=== PATIENT | female | born 1965 | race Caucasian/White ===

== ENCOUNTER → 2016-11-22 | Outpatient (CLI) | payer MEDICARE, MEDICAID | LOC: WI 09:44 | PROVIDERS: ATTEND Family Medicine | DX: Z12.31 Encounter for screening mammogram for malignant neoplasm of breast (principal) | CPT/HCPCS: 77067; G0202 ==

== ENCOUNTER 2017-08-18 07:58 | Emergency (ER) | payer MEDICARE, MEDICAID ==
[2017-08-18 08:04] VITALS: BP 107/87
--- NOTE | 2017-08-18 08:48 | ER Document Report ---
ED General - General Chief Complaint: Cough Stated Complaint: COUGH Time Seen by Provider: 08/18/17 08:28 TRAVEL OUTSIDE OF THE [place] IN LAST 30 DAYS: No - Related Data Allergies/Adverse Reactions: amoxicillin [From Augmentin] Allergy (Verified 04/25/16 16:48) clarithromycin [From Biaxin] Allergy (Verified 04/25/16 16:48) clavulanic acid [From Augmentin] Allergy (Verified 04/25/16 16:48) meloxicam [From Mobic] Allergy (Verified 04/25/16 16:48) Past Medical History - Social History Smoking Status: Current Every Day Smoker Chew tobacco use (# tins/day): No Frequency of alcohol use: None Drug Abuse: None Family History: Reviewed & Not Pertinent Patient has suicidal ideation: No Patient has homicidal ideation: No Pulmonary Medical History: Reports: Hx Bronchitis, Hx COPD Endocrine Medical History: Reports: Hx Diabetes Mellitus Type 2 Renal/ Medical History: Denies: Hx Peritoneal Dialysis GI Medical History: Reports: Hx Gastroesophageal Reflux Disease Past Surgical History: Reports: Hx Breast Surgery - breast reduction, Hx Cholecystectomy, Hx Genitourinary Surgery - bladder mesh insert and removal, Hx Gynecologic Surgery - hysterectomy, Hx Hysterectomy, Hx Nose Surgery - deviated septum, polyp removals, Hx Orthopedic Surgery - right shoulder spurs and cyst removal, torn rotator cuff, left ulnar nerve, Hx Thyroid Surgery - thyroidectomy - Immunizations Immunizations up to date: No Hx Diphtheria, Pertussis, Tetanus Vaccination: No Physical Exam - Vital signs Vitals: Temp Pulse Resp BP Pulse Ox 98.3 F 70 16 107/87 H 97 08/18/17 08:03 08/18/17 08:03 08/18/17 08:03 08/18/17 08:03 08/18/17 08:03 Course - Vital Signs Vital signs: Temp Pulse Resp BP Pulse Ox 98.3 F 70 16 107/87 H 97 08/18/17 08:03 08/18/17 08:03 08/18/17 08:03 08/18/17 08:03 08/18/17 08:03 Discharge - Discharge Clinical Impression: Cough Condition: Good Disposition: HOME, SELF-CARE Instructions: Bronchitis ([facility]), Cough Suppressant & Expectorant Medications, Oral Narcotic Medication ([facility]), Stop Smoking ([facility]) Additional Instructions: Please continue medications as previously prescribed. He may use the Tylenol with codeine for possible cough suppression. Also suggest using over-the- counter medications mixed drinks with honey for cough suppression. Her lung sounds today are clear did not suspect any other infectious etiologies far as pneumonia. When people that smoke are diagnosed with bronchitis you can expect a cough to continue for approximately 4-6 weeks. Stop smoking drink plenty water follow-up as needed. Prescriptions: Acetaminophen with Codeine [Tylenol #3 Tablet] 1 each PO Q4HP PRN #20 tablet PRN Reason: Albuterol Sulfate [Albuterol Sulfate 2.5mg/3 mL] 2.5 mg IH Q4 #30 ml Forms: Smoking Cessation Education, Return to Work
--- NOTE | 2017-08-18 14:11 | ER Document Report ---
ED General - General Chief Complaint: Cough Stated Complaint: COUGH Time Seen by Provider: 08/18/17 08:28 TRAVEL OUTSIDE OF THE [place] IN LAST 30 DAYS: No - HPI Patient complains to provider of: Cough Notes: Patient coming in for evaluation of cough. Patient states cough ongoing for approximately 1-2 weeks. Patient does have history of smoking patient patient she has been sick she is not smoking patient has guarding on 3 1 Z-Sushil and a course of steroids patient states she is on her second Z-Sushil at this time. Denies fevers chills. Denies any recent travel. Patient resting comfortably upon my evaluation. - Related Data Allergies/Adverse Reactions: amoxicillin [From Augmentin] Allergy (Verified 04/25/16 16:48) clarithromycin [From Biaxin] Allergy (Verified 04/25/16 16:48) clavulanic acid [From Augmentin] Allergy (Verified 04/25/16 16:48) meloxicam [From Mobic] Allergy (Verified 04/25/16 16:48) Past Medical History - Social History Smoking Status: Current Every Day Smoker Chew tobacco use (# tins/day): No Frequency of alcohol use: None Drug Abuse: None Family History: Reviewed & Not Pertinent Patient has suicidal ideation: No Patient has homicidal ideation: No Pulmonary Medical History: Reports: Hx Bronchitis, Hx COPD Endocrine Medical History: Reports: Hx Diabetes Mellitus Type 2 Renal/ Medical History: Denies: Hx Peritoneal Dialysis GI Medical History: Reports: Hx Gastroesophageal Reflux Disease Past Surgical History: Reports: Hx Breast Surgery - breast reduction, Hx Cholecystectomy, Hx Genitourinary Surgery - bladder mesh insert and removal, Hx Gynecologic Surgery - hysterectomy, Hx Hysterectomy, Hx Nose Surgery - deviated septum, polyp removals, Hx Orthopedic Surgery - right shoulder spurs and cyst removal, torn rotator cuff, left ulnar nerve, Hx Thyroid Surgery - thyroidectomy - Immunizations Immunizations up to date: No Hx Diphtheria, Pertussis, Tetanus Vaccination: No Review of Systems - Review of Systems Constitutional: No symptoms reported EENT: No symptoms reported Cardiovascular: No symptoms reported Respiratory: Cough Gastrointestinal: No symptoms reported Genitourinary: No symptoms reported Female Genitourinary: No symptoms reported Musculoskeletal: No symptoms reported Skin: No symptoms reported Hematologic/Lymphatic: No symptoms reported Neurological/Psychological: No symptoms reported -: Yes All other systems reviewed and negative Physical Exam - Vital signs Vitals: Temp Pulse Resp BP Pulse Ox 98.3 F 70 16 107/87 H 97 08/18/17 08:03 08/18/17 08:03 08/18/17 08:03 08/18/17 08:03 08/18/17 08:03 Interpretation: Normal - General General appearance: Appears well, Alert - HEENT Head: Normocephalic, Atraumatic Eyes: Normal Pupils: PERRL - Respiratory Respiratory status: No respiratory distress Chest status: Nontender Breath sounds: Normal Chest palpation: Normal - Cardiovascular Rhythm: Regular Heart sounds: Normal auscultation Murmur: No - Abdominal Inspection: Normal Distension: No distension Bowel sounds: Normal Tenderness: Nontender Organomegaly: No organomegaly - Back Back: Normal, Nontender - Extremities General upper extremity: Normal inspection, Nontender, Normal color, Normal ROM , Normal temperature General lower extremity: Normal inspection, Nontender, Normal color, Normal ROM , Normal temperature, Normal weight bearing. No: Gretchen's sign - Neurological Neuro grossly intact: Yes Cognition: Normal Orientation: AAOx4 [place] Coma Scale Eye Opening: Spontaneous [place] Coma Scale Verbal: Oriented [place] Coma Scale Motor: Obeys Commands [place] Coma Scale Total: 15 Speech: Normal Motor strength normal: LUE, RUE, LLE, RLE Sensory: Normal - Psychological Associated symptoms: Normal affect, Normal mood - Skin Skin Temperature: Warm Skin Moisture: Dry Skin Color: Normal Course - Re-evaluation Re-evalutation: 08/18/17 14:11 Patient coming in for evaluation of cough. Lung sounds are clear. Explained the patient the pathophysiology of bronchitis with a long history of cough afterwards that the cough will take approximately 4-6 weeks to clear especially with the patient have a history of smoking. Patient will be given Tylenol 3 for cough suppression. Educated patient on the use of honey as well. Patient is also reviewed to continue albuterol at home did refill the patient's prescription for albuterol she states that her albuterol is out of date at this time. Encouraged patient to stop smoking. Patient will be discharged home. - Vital Signs Vital signs: Temp Pulse Resp BP Pulse Ox 98.3 F 70 16 107/87 H 97 08/18/17 08:03 08/18/17 08:03 08/18/17 08:03 08/18/17 08:03 08/18/17 08:03 Discharge - Discharge Clinical Impression: Cough Condition: Good Disposition: HOME, SELF-CARE Instructions: Bronchitis ([facility]), Cough Suppressant & Expectorant Medications, Oral Narcotic Medication ([facility]), Stop Smoking ([facility]) Additional Instructions: Please continue medications as previously prescribed. He may use the Tylenol with codeine for possible cough suppression. Also suggest using over-the- counter medications mixed drinks with honey for cough suppression. Her lung sounds today are clear did not suspect any other infectious etiologies far as pneumonia. When people that smoke are diagnosed with bronchitis you can expect a cough to continue for approximately 4-6 weeks. Stop smoking drink plenty water follow-up as needed. Prescriptions: Acetaminophen with Codeine [Tylenol #3 Tablet] 1 each PO Q4HP PRN #20 tablet PRN Reason: Albuterol Sulfate [Albuterol Sulfate 2.5mg/3 mL] 2.5 mg IH Q4 #30 ml Forms: Smoking Cessation Education, Return to Work Referrals: DIEGO BOCANEGRA MD [Primary Care Provider] - Follow up as needed
== END 2017-08-18 08:55 | disposition home or self-care (01) ==
LOC: ER 07:58
DX: R05 Cough (principal); F17.200 Nicotine dependence, unspecified, uncomplicated; J44.9 Chronic obstructive pulmonary disease, unspecified; E11.9 Type 2 diabetes mellitus without complications; Z90.49 Acquired absence of other specified parts of digestive tract; Z90.710 Acquired absence of both cervix and uterus
CPT/HCPCS: 99283

== ENCOUNTER 2018-09-22 09:47 | Emergency (ER) | payer MEDICAID, MEDICARE ==
[2018-09-22] MEDS ORDERED: ONDANSETRON HCL INJ/PF 4 MG/2 ML SDV IV ONE (10:06)
[2018-09-22] MEDS ORDERED: MORPHINE SULFATE 10 MG/ML INJ IV ONE ×3 (10:06→15:42)
--- NOTE | 2018-09-22 10:27 | ER Document Report ---
Entered by HAROON ROGERS SCRIBE 09/22/18 1013 Acting as scribe for:CARMEN MÉNDEZ DO ED Medical Screen (RME) - General Chief Complaint: Abdominal Pain Stated Complaint: BACK PAIN Time Seen by Provider: 09/22/18 10:02 Primary Care Provider: DIEGO BOCANEGRA MD [Primary Care Provider] - Follow up as needed Mode of Arrival: Ambulatory Information source: Patient Notes: Patient is a 53 year old female with diverticulosis presents to the emergency department complaining of abdominal pain onset 1 week ago. Patient states she took citrucel in attempt to alleive her pain but states it did not help. She states the pain is exacerbated with eating and also complains of abdominal bloating, nausea and burping. She denies any vomiting, diarrhea, fevers or a history of diverticulitis. She does have a history of diverticulosis, she is afraid she is having diverticulitis at this time. She states she recently presented to [facility] concerning her current symptoms and was prescribed Augmentin. I have greeted and performed a rapid initial assessment of this patient. A comprehensive ED assessment and evaluation of the patient, analysis of test results and completion of the medical decision making process will be conducted by additional ED providers. GENERAL: Alert, interacts well. No acute distress. HEAD: Normocephalic, Atraumatic. EYES: Pupils equal, round, and reactive to light. EOMI. ENT: Oral mucosa moist, tongue midline. NECK: Full range of motion. Supple. Trachea midline. LUNGS: No respiratory distress. ABDOMEN: Soft, diffusely tender to palpation, more tender to the epigastrium. Non-distended. EXTREMITIES: Moves all four extremities spontaneously. PSYCH: Normal affect, normal mood. TRAVEL OUTSIDE OF THE [place] IN LAST 30 DAYS: No - Related Data Allergies/Adverse Reactions: amoxicillin [From Augmentin] Allergy (Verified 09/22/18 09:47) clarithromycin [From Biaxin] Allergy (Verified 09/22/18 09:47) clavulanic acid [From Augmentin] Allergy (Verified 09/22/18 09:47) meloxicam [From Mobic] Allergy (Verified 09/22/18 09:47) adhesive tape Adverse Reaction (Intermediate, Verified 09/22/18 10:01) Past Medical History Pulmonary Medical History: Reports: Hx Bronchitis, Hx COPD Endocrine Medical History: Reports: Hx Diabetes Mellitus Type 2 Renal/ Medical History: Denies: Hx Peritoneal Dialysis GI Medical History: Reports: Hx Gastroesophageal Reflux Disease Past Surgical History: Reports: Hx Breast Surgery - breast reduction, Hx Cholecystectomy, Hx Genitourinary Surgery - bladder mesh insert and removal, Hx Gynecologic Surgery - hysterectomy, Hx Hysterectomy, Hx Nose Surgery - deviated septum, polyp removals, Hx Orthopedic Surgery - right shoulder spurs and cyst removal, torn rotator cuff, left ulnar nerve, Hx Thyroid Surgery - thyroidectomy - Immunizations Immunizations up to date: No Hx Diphtheria, Pertussis, Tetanus Vaccination: No Physical Exam - Vital signs Vitals: Temp Pulse Resp BP Pulse Ox 97.7 F 86 18 140/81 H 98 09/22/18 09:54 09/22/18 09:54 09/22/18 09:54 09/22/18 09:54 09/22/18 09:54 Course - Vital Signs Vital signs: Temp Pulse Resp BP Pulse Ox 97.7 F 86 18 140/81 H 98 09/22/18 09:54 09/22/18 09:54 09/22/18 09:54 09/22/18 09:54 09/22/18 09:54 Doctor's Discharge - Discharge Referrals: DIEGO BOCANEGRA MD [Primary Care Provider] - Follow up as needed I personally performed the services described in the documentation, reviewed and edited the documentation which was dictated to the scribe in my presence, and it accurately records my words and actions.
[2018-09-22 11:03] LABS: ABSOLUTE BASOPHILS # (AUTO) 0.1 10^3/uL (0.0-0.2); ABSOLUTE EOSINOPHILS # (AUTO) 0.3 10^3/uL (0.0-0.6); ABSOLUTE LYMPHOCYTES (AUTO) 3.4 10^3/uL (0.5-4.7); ABSOLUTE MONOCYTES (AUTO) 0.7 10^3/uL (0.1-1.4); ABSOLUTE NEUT (AUTO) 4.7 10^3/uL (1.7-8.2); BASOPHILS % (AUTO) 0.6 % (0-2); EOSINOPHILS % (AUTO) 2.8 % (0-6); HEMATOCRIT 49.3 % (36.0-47.0); HEMOGLOBIN 17.1 g/dL (12.0-15.5); LYMPHOCYTES % (AUTO) 37.9 % (13-45); MEAN CORPUSCULAR HEMOGLOBIN 30.3 pg (27.0-33.4); MEAN CORPUSCULAR HGB CONC 34.8 g/dL (32.0-36.0); MEAN CORPUSCULAR VOLUME 87 fl (80-97); MONOCYTES % (AUTO) 7.4 % (3-13); PLATELET COUNT 232 10^3/uL (150-450); RED BLOOD COUNT 5.66 10^6/uL (3.72-5.28); SEGMENTED NEUTROPHILS % (AUTO) 51.3 % (42-78); TOTAL CELLS COUNTED % (AUTO) 100 %; WHITE BLOOD COUNT 9.1 10^3/uL (4.0-10.5)
[2018-09-22] MEDS ORDERED: PANTOPRAZOLE SODIUM 40 MG VIAL IV ONE (11:04)
[2018-09-22] MEDS ORDERED: NORMAL SALINE 1000 ML 1,000 ML IV ONE (11:07)
--- NOTE | 2018-09-22 11:07 | ER Document Report ---
ED General - General Chief Complaint: Abdominal Pain Stated Complaint: BACK PAIN Time Seen by Provider: 09/22/18 10:02 Primary Care Provider: DIEGO BOCANEGRA MD [NO LOCAL MD] - Follow up as needed Mode of Arrival: Ambulatory Information source: Patient Notes: 53-year-old female with a history of diabetes, hypertension, GERD, diverticulosis who presents to the emergency room with abdominal pain, bloating, discomfort for the past week. She denies constipation. She was placed on Augmentin by her primary care doctor 3 days ago. She has had persistent symptoms. She denies any blood in the stool. She denies any fever. TRAVEL OUTSIDE OF THE [place] IN LAST 30 DAYS: No - HPI Onset: Last week Onset/Duration: Gradual Quality of pain: Achy, Dull Severity: Mild Pain Level: 1 Associated symptoms: denies: Chest pain, Fever, Shortness of breath Exacerbated by: Denies Relieved by: Denies Similar symptoms previously: Yes Recently seen / treated by doctor: Yes - Related Data Allergies/Adverse Reactions: clarithromycin [From Biaxin] Allergy (Verified 09/22/18 09:47) clavulanic acid [From Augmentin] Allergy (Verified 09/22/18 09:47) meloxicam [From Mobic] Allergy (Verified 09/22/18 09:47) adhesive tape Adverse Reaction (Intermediate, Verified 09/22/18 10:01) amoxicillin [From Augmentin] Adverse Reaction (Verified 09/22/18 10:42) Past Medical History - General Information source: Patient - Social History Smoking Status: Former Smoker Cigarette use (# per day): No Chew tobacco use (# tins/day): No Frequency of alcohol use: None Drug Abuse: None Family History: Reviewed & Not Pertinent Patient has suicidal ideation: No Patient has homicidal ideation: No Pulmonary Medical History: Reports: Hx Bronchitis, Hx COPD Endocrine Medical History: Reports: Hx Diabetes Mellitus Type 2 Renal/ Medical History: Denies: Hx Peritoneal Dialysis GI Medical History: Reports: Hx Gastroesophageal Reflux Disease Past Surgical History: Reports: Hx Breast Surgery - breast reduction, Hx Cholecystectomy, Hx Genitourinary Surgery - bladder mesh insert and removal, Hx Gynecologic Surgery - hysterectomy, Hx Hysterectomy, Hx Nose Surgery - deviated septum, polyp removals, Hx Orthopedic Surgery - right shoulder spurs and cyst removal, torn rotator cuff, left ulnar nerve, Hx Thyroid Surgery - thyroidectomy - Immunizations Immunizations up to date: No Hx Diphtheria, Pertussis, Tetanus Vaccination: No Review of Systems - Review of Systems Constitutional: denies: Chills, Fever EENT: No symptoms reported Cardiovascular: No symptoms reported Respiratory: No symptoms reported Gastrointestinal: See HPI Genitourinary: No symptoms reported Female Genitourinary: No symptoms reported Musculoskeletal: No symptoms reported Skin: No symptoms reported Hematologic/Lymphatic: No symptoms reported Neurological/Psychological: No symptoms reported Physical Exam - Vital signs Vitals: Temp Pulse Resp BP Pulse Ox 97.7 F 86 18 140/81 H 98 09/22/18 09:54 09/22/18 09:54 09/22/18 09:54 09/22/18 09:54 09/22/18 09:54 Notes: Physical exam: GENERAL: Patient is alert and oriented x3, c/o abdominal discomfort HEAD: Atraumatic, normocephalic. EYES: Pupils equal round and reactive to light, extraocular movements intact, sclera anicteric, conjunctiva are normal. ENT: TMs normal, nares patent, oropharynx clear without exudates. Moist mucous membranes. NECK: Normal range of motion, supple without obvious mass or JVD. LUNGS: Breath sounds clear to auscultation bilaterally and equal. No wheezes rales or rhonchi. HEART: Regular rate and rhythm without murmurs, rubs or gallops. ABDOMEN: Soft, normoactive bowel sounds. Mild tenderness diffusely but seems to be more in the left lower quadrant no guarding, no rebound. No masses appre ciated. EXTREMITIES: Normal range of motion, no pitting or edema. No clubbing or cyanosis. NEUROLOGICAL: Cranial nerves II through XII grossly intact. Normal speech, moving all extremities. PSYCH: Normal mood, normal affect. SKIN: Warm, Dry, normal turgor, no rashes or lesions noted. Course - Re-evaluation Re-evalutation: 09/22/18 19:02 Note: The CT of the abdomen shows no acute process. On reassessment of the patient, she does state that she feels bloated and gassy. She is drinking a soft drink at this time. I have advised her to avoid carbonated drinks for the next week or 2 and then try and cut down on the smoking. I have also recommended that she continue current medicines. She is on a GI prophylaxis medicine. I will give her some medicine for abdominal cramping. Given that her primary care doctor put her on Augmentin, I have advised her to continue this. I have advised her to follow-up with her primary care doctor on Sunday. I have given her a copy of today's lab tests and CT results. - Vital Signs Vital signs: Temp Pulse Resp BP Pulse Ox 97.8 F 71 18 133/79 H 96 09/22/18 16:10 09/22/18 16:10 09/22/18 16:10 09/22/18 16:10 09/22/18 16:10 - Laboratory Result Diagrams: 09/22/18 10:24 09/22/18 10:24 Laboratory results interpreted by me: 09/22/18 09/22/18 09/22/18 10:20 10:24 10:24 RBC 5.66 H Hgb 17.1 H Hct 49.3 H Sodium 145.9 H Calcium 11.1 H Alkaline Phosphatase 127 H Total Protein 8.6 H Albumin 5.5 H Urine Blood SMALL H - Diagnostic Test Radiology reviewed: Image reviewed, Reports reviewed - T of the abdomen shows no acute intra-abdominal process Discharge - Discharge Clinical Impression: Abdominal pain Condition: Stable Disposition: HOME, SELF-CARE Additional Instructions: As we discussed, the CAT scan did not show any acute intra-abdominal pathology. Your labs did look good. I would take it easy over the next few days. Avoid carbonated drinks. Take the medicine as prescribed. Continue with the Augmentin as previously prescribed. Follow-up with your doctor in the office tomorrow: Bring a copy of today's lab tests and CT with you. Return to the emergency room for worsening abdominal pain. Prescriptions: Dicyclomine HCl [Bentyl 10 mg Capsule] 1 cap PO TID #30 cap Referrals: DIEGO BOCANEGRA MD [NO LOCAL MD] - Follow up as needed
[2018-09-22 11:11] LABS: APPEARANCE,URINE SLIGHTLY-CLOUDY; BILIRUBIN,URINE NEGATIVE (NEGATIVE); COLOR,URINE YELLOW; GLUCOSE, URINE NEGATIVE (NEGATIVE); KETONES,URINE NEGATIVE (NEGATIVE); LEUKOCYTE ESTERASE,URINE NEGATIVE (NEGATIVE); NITRITE,URINE NEGATIVE (NEGATIVE); PROTEIN,URINE NEGATIVE (NEGATIVE); URINE SPECIFIC GRAVITY 1.009; UROBILINOGEN,URINE NEGATIVE mg/dL (<2.0)
[2018-09-22 11:13] LABS: ALANINE AMINOTRANSFERASE 27 U/L (9-52); ALBUMIN 5.5 g/dL (3.5-5.0); ALKALINE PHOSPHATASE 127 U/L (38-126); ANION GAP 16 (5-19); ASPARTATE AMINO TRANSFERASE 26 U/L (14-36); BILIRUBIN,DIRECT 0.3 mg/dL (0.0-0.4); BILIRUBIN,TOTAL 0.5 mg/dL (0.2-1.3); BLOOD UREA NITROGEN 12 mg/dL (7-20); CALCIUM 11.1 mg/dL (8.4-10.2); CARBON DIOXIDE 29 mmol/L (22-30); CHLORIDE 101 mmol/L (98-107); GLUCOSE 90 mg/dL (75-110); LIPASE 253.7 U/L (23-300); POTASSIUM 3.9 mmol/L (3.6-5.0); SODIUM 145.9 mmol/L (137-145); TOTAL PROTEIN 8.6 g/dL (6.3-8.2)
--- NOTE | 2018-09-22 14:38 | RADIOLOGY REPORT (SQ) ---
EXAM DESCRIPTION: CT ABD/PELVIS WITH IV ORAL COMPLETED DATE/TIME: 09/22/2018 2:01 pm REASON FOR STUDY: abd pain . Diffuse abdominal pain. Prior cholecystectomy and hysterectomy. COMPARISON: None. TECHNIQUE: CT scan of the abdomen and pelvis performed using helical scanning technique with dynamic intravenous contrast injection and with oral contrast. Images reviewed with lung, soft tissue, and b one windows. Reconstructed coronal and sagittal MPR images reviewed. Delayed images for evaluation of the urinary system also acquired. All images stored on PACS. All CT scanners at this facility use dose modulation, iterative reconstruction, and/or weight based d osing when appropriate to reduce radiation dose to as low as reasonably achievable (ALARA). [facility]: Dose Right [facility]: CareDose [facility]: Dose Right [facility]: Teradose 4D [facility]: Cartiva CONTRAST TYPE AND DOSE: contrast/concentration: Isovue 350.00 mg/ml; Total Contrast Delivered: 93.0 ml; Total Saline Delivered: 71.0 ml RENAL FUNCTION: Creatinine 0.81 RADIATION DOSE: CT Rad equipment meets quality standard of care and radiation dose reduction techniq ues were employed. CTDIvol: 10.7 - 14.9 mGy. DLP: 1455 mGy-cm.. LIMITATIONS: None. FINDINGS: LOWER CHEST: No consolidation or pleural effusion. LIVER: Enlarged measuring 23.3 cm in craniocaudal diameter. There is diffuse decreased attenuation, most consistent with fatty infiltration. No dilated ducts. SPLEEN: Normal size. PANCREAS: No significant calcifications. No adjacent inflammation or peripancreatic fluid collections . Pancreatic duct not dilated. GALLBLADDER: Surgically absent. ADRENAL GLANDS: No significant masses or asymmetry. RIGHT KIDNEY AND URETER: No solid masses. No significant calcifications. No hydronephrosis or hyd roureter. LEFT KIDNEY AND URETER: No solid masses. No significant calcifications. No hydronephrosis or hydr oureter. AORTA AND VESSELS: Atherosclerotic calcifications in the abdominal aorta and its branches. No abdomi nal aortic aneurysm. RETROPERITONEUM: No retroperitoneal adenopathy, hemorrhage or masses. BOWEL AND PERITONEAL CAVITY: No dilated bowel loops or inflammatory changes. No free fluid or free ai r. APPENDIX: Normal. PELVIS: Partially obscured by streak artifact from the left hip prosthesis. The urinary bladder is p artially distended. The uterus is surgically absent. No free fluid. ABDOMINAL WALL: Status post ventral hernia repair with mesh placement. BONES: The patient is status post total left hip arthroplasty. Multilevel degenerative changes are s een at the spine. IMPRESSION: 1. No acute findings in the abdomen or pelvis. 2. Hepatomegaly. Fatty infiltration of the liver. TECHNICAL DOCUMENTATION: JOB ID: [id number] [place]-64 Quality ID # [id number]: Final reports with documentation of one or more dose reduction techniques (e.g., Au tomated exposure control, adjustment of the mA and/or kV according to patient size, use of iterative reconstruction technique) 2010 [employer]- All Rights Reserved Reading location - IP/workstation name: [email or web address]
[2018-09-22 16:11] VITALS: BP 133/79
== END 2018-09-22 16:19 | disposition home or self-care (01) ==
LOC: ER 09:47
DX: R10.9 Unspecified abdominal pain (principal); M54.9 Dorsalgia, unspecified; E11.9 Type 2 diabetes mellitus without complications; I10 Essential (primary) hypertension; Z87.891 Personal history of nicotine dependence; J44.9 Chronic obstructive pulmonary disease, unspecified
CPT/HCPCS: 96376; 99284; 96361; 96375; 96365; 96366; 36415; 83690; 85025; 80053; 81001; 74177; J2270; C9113; J2405; J7030; S0164

== ENCOUNTER 2019-04-02 22:55 | Emergency (ER) | payer MEDICARE ==
[2019-04-02 23:01] VITALS: BP 147/91
--- NOTE | 2019-04-03 02:13 | ER Document Report ---
Doctor's Note Notes: I have attempted to go see the patient and was told by nursing staff patient has left the emergency department. I did not see the patient to evaluate them.
== END 2019-04-03 01:47 | disposition left against medical advice (07) ==
LOC: ER 22:55
DX: Z53.21 Procedure and treatment not carried out due to patient leaving prior to being seen by health care provider (principal); R50.9 Fever, unspecified
CPT/HCPCS: 99281

== ENCOUNTER 2019-05-09 10:53 | Emergency (ER) | payer MEDICARE, MEDICAID ==
--- NOTE | 2019-05-09 11:15 | ER Document Report ---
ED Medical Screen (RME) - General Stated Complaint: FEVER, SICK Time Seen by Provider: 05/09/19 11:11 Primary Care Provider: DOMINGO QUIÑONEZ PA-C [Primary Care Provider] - Follow up as needed Mode of Arrival: Ambulatory Information source: Patient Notes: 4-year-old female presented to ED for complaint does not feel good and she is been doing this since March. She states her temp is been running 98.8-99 and her temp is usually 97. She states she has been nauseated not vomiting. She does not have significant abdominal pain she just does not feel good anything that was going on. She states she smokes 1/2 pack to a pack a day she states she does not drink or use any illicit drugs. She states she is disabled and lives with family. She states when she was in [place] a couple weeks ago her dentist it is a separate lives. She states her disability is for back problems. An enlarged heart heart valve regurgitation and a left hip replacement. Patient is alert and oriented respirations regular and unlabored at this time. I have greeted and performed a rapid initial assessment of this patient. A comprehensive ED assessment and evaluation of the patient, analysis of test resu lts and completion of medical decision making process will be conducted by an additional ED providers. TRAVEL OUTSIDE OF THE [place] IN LAST 30 DAYS: No - Related Data Allergies/Adverse Reactions: clarithromycin [From Biaxin] Allergy (Verified 09/22/18 09:47) clavulanic acid [From Augmentin] Allergy (Verified 09/22/18 09:47) meloxicam [From Mobic] Allergy (Verified 09/22/18 09:47) adhesive tape Adverse Reaction (Intermediate, Verified 09/22/18 10:01) amoxicillin [From Augmentin] Adverse Reaction (Verified 09/22/18 10:42) Past Medical History Pulmonary Medical History: Reports: Hx Bronchitis, Hx COPD Endocrine Medical History: Reports: Hx Diabetes Mellitus Type 2 Renal/ Medical History: Denies: Hx Peritoneal Dialysis GI Medical History: Reports: Hx Gastroesophageal Reflux Disease Past Surgical History: Reports: Hx Breast Surgery - breast reduction, Hx Cholecystectomy, Hx Genitourinary Surgery - bladder mesh insert and removal, Hx Gynecologic Surgery - hysterectomy, Hx Hysterectomy, Hx Nose Surgery - deviated septum, polyp removals, Hx Orthopedic Surgery - right shoulder spurs and cyst removal, torn rotator cuff, left ulnar nerve, Hx Thyroid Surgery - thyroidectomy - Immunizations Immunizations up to date: No Hx Diphtheria, Pertussis, Tetanus Vaccination: No Physical Exam - Vital signs Vitals: Temp Pulse Resp BP Pulse Ox 98.0 F 65 18 140/64 H 97 05/09/19 11:08 05/09/19 11:08 05/09/19 11:08 05/09/19 11:08 05/09/19 11:08 Course - Vital Signs Vital signs: Temp Pulse Resp BP Pulse Ox 98.0 F 65 18 140/64 H 97 05/09/19 11:08 05/09/19 11:08 05/09/19 11:08 05/09/19 11:08 05/09/19 11:08 Doctor's Discharge - Discharge Referrals: DOMINGO QUIÑONEZ PA-C [Primary Care Provider] - Follow up as needed
[2019-05-09 12:07] LABS: ABSOLUTE BASOPHILS # (AUTO) 0.1 10^3/uL (0.0-0.2); ABSOLUTE EOSINOPHILS # (AUTO) 0.2 10^3/uL (0.0-0.6); ABSOLUTE LYMPHOCYTES (AUTO) 3.5 10^3/uL (0.5-4.7); ABSOLUTE MONOCYTES (AUTO) 0.8 10^3/uL (0.1-1.4); ABSOLUTE NEUT (AUTO) 4.7 10^3/uL (1.7-8.2); BASOPHILS % (AUTO) 0.6 % (0-2); HEMATOCRIT 45.8 % (36.0-47.0); HEMOGLOBIN 15.6 g/dL (12.0-15.5); LYMPHOCYTES % (AUTO) 37.9 % (13-45); MEAN CORPUSCULAR HEMOGLOBIN 30.1 pg (27.0-33.4); MEAN CORPUSCULAR HGB CONC 34.1 g/dL (32.0-36.0); MEAN CORPUSCULAR VOLUME 89 fl (80-97); MONOCYTES % (AUTO) 8.7 % (3-13); PLATELET COUNT 191 10^3/uL (150-450); RED BLOOD COUNT 5.17 10^6/uL (3.72-5.28); RED CELL DISTRIBUTION WIDTH 13.9 % (11.5-14.0); SEGMENTED NEUTROPHILS % (AUTO) 50.8 % (42-78); TOTAL CELLS COUNTED % (AUTO) 100 %; WHITE BLOOD COUNT 9.3 10^3/uL (4.0-10.5)
[2019-05-09 12:27] LABS: APPEARANCE,URINE CLEAR; BILIRUBIN,URINE NEGATIVE (NEGATIVE); COLOR,URINE STRAW; GLUCOSE, URINE NEGATIVE (NEGATIVE); KETONES,URINE NEGATIVE (NEGATIVE); LEUKOCYTE ESTERASE,URINE NEGATIVE (NEGATIVE); NITRITE,URINE NEGATIVE (NEGATIVE); PROTEIN,URINE NEGATIVE (NEGATIVE); URINE SPECIFIC GRAVITY 1.004; UROBILINOGEN,URINE NEGATIVE mg/dL (<2.0)
[2019-05-09 12:29] LABS: ALBUMIN 5.1 g/dL (3.5-5.0); ALKALINE PHOSPHATASE 111 U/L (38-126); ANION GAP 10 (5-19); ASPARTATE AMINO TRANSFERASE 37 U/L (14-36); BILIRUBIN,DIRECT 0.3 mg/dL (0.0-0.4); BILIRUBIN,TOTAL 0.5 mg/dL (0.2-1.3); BLOOD UREA NITROGEN 12 mg/dL (7-20); CALCIUM 10.6 mg/dL (8.4-10.2); CARBON DIOXIDE 28 mmol/L (22-30); CHLORIDE 105 mmol/L (98-107); GLUCOSE 87 mg/dL (75-110); POTASSIUM 4.7 mmol/L (3.6-5.0); TOTAL PROTEIN 7.9 g/dL (6.3-8.2)
[2019-05-09 13:10] VITALS: BP 140/69
--- NOTE | 2019-05-09 13:19 | ER Document Report ---
ED General - General Chief Complaint: Nausea Stated Complaint: FEVER, SICK Time Seen by Provider: 05/09/19 11:11 Primary Care Provider: DOMINGO QUIÑONEZ PA-C [Primary Care Provider] - Follow up as needed Mode of Arrival: Ambulatory TRAVEL OUTSIDE OF THE [place] IN LAST 30 DAYS: No - HPI Patient complains to provider of: weakness Notes: 54 y/o presenting to ED for evaluation of generalized weakness and fatigue ongoing for about 2-3 months she is currently on augment for sinus infection and notes this has not helped her at all she is on synthroid as she has no thyroid and is unsure if her thyroid has been checked she denies fever, chills, vomiting, diarrhea, rashes, cough she has had congestion and sinus pain but again is on augment - Related Data Allergies/Adverse Reactions: clarithromycin [From Biaxin] Allergy (Verified 05/09/19 11:12) meloxicam [From Mobic] Allergy (Verified 05/09/19 11:12) adhesive tape Adverse Reaction (Intermediate, Verified 05/09/19 11:12) Past Medical History - General Information source: Patient - Social History Smoking Status: Current Every Day Smoker Chew tobacco use (# tins/day): No Frequency of alcohol use: None Drug Abuse: None Family History: Reviewed & Not Pertinent Patient has suicidal ideation: No Patient has homicidal ideation: No Pulmonary Medical History: Reports: Hx Bronchitis, Hx COPD Endocrine Medical History: Reports: Hx Diabetes Mellitus Type 2 Renal/ Medical History: Denies: Hx Peritoneal Dialysis GI Medical History: Reports: Hx Gastroesophageal Reflux Disease Past Surgical History: Reports: Hx Breast Surgery - breast reduction, Hx Ch olecystectomy, Hx Genitourinary Surgery - bladder mesh insert and removal, Hx Gynecologic Surgery - hysterectomy, Hx Hysterectomy, Hx Nose Surgery - deviated septum, polyp removals, Hx Orthopedic Surgery - right shoulder spurs and cyst removal, torn rotator cuff, left ulnar nerve, Hx Thyroid Surgery - thyroidectomy - Immunizations Immunizations up to date: No Hx Diphtheria, Pertussis, Tetanus Vaccination: No Review of Systems - Review of Systems Constitutional: Malaise, Weakness EENT: No symptoms reported Cardiovascular: No symptoms reported Respiratory: No symptoms reported Gastrointestinal: No symptoms reported Genitourinary: No symptoms reported Female Genitourinary: No symptoms reported Musculoskeletal: No symptoms reported Skin: No symptoms reported Hematologic/Lymphatic: No symptoms reported Neurological/Psychological: No symptoms reported Physical Exam - Vital signs Vitals: Temp Pulse Resp BP Pulse Ox 98.0 F 65 18 140/64 H 97 05/09/19 11:08 05/09/19 11:08 05/09/19 11:08 05/09/19 11:08 05/09/19 11:08 Interpretation: Normal - General General appearance: Appears well, Alert - HEENT Head: Normocephalic, Atraumatic Eyes: Normal Pupils: PERRL Mucous membranes: Dry Pharynx: Normal Neck: Normal. No: Anterior cervical chain, Posterior cervical chain, Lymphadenopathy - Respiratory Respiratory status: No respiratory distress Chest status: Nontender Breath sounds: Normal Chest palpation: Normal - Cardiovascular Rhythm: Regular Heart sounds: Normal auscultation Murmur: No - Abdominal Inspection: Normal Distension: No distension Bowel sounds: Normal Tenderness: Nontender Organomegaly: No organomegaly - Back Back: Normal, Nontender - Extremities General upper extremity: Normal inspection, Nontender, Normal color, Normal ROM, Normal temperature General lower extremity: Normal inspection, Nontender, Normal color, Normal ROM, Normal temperature, Normal weight bearing. No: Gretchen's sign - Neurological Neuro grossly intact: Yes Cognition: Normal Orientation: AAOx4 Ela Coma Scale Eye Opening: Spontaneous Ela Coma Scale Verbal: Oriented [place] Coma Scale Motor: Obeys Commands Ela Coma Scale Total: 15 Speech: Normal Motor strength normal: LUE, RUE, LLE, RLE Sensory: Normal - Psychological Associated symptoms: Normal affect, Normal mood - Skin Skin Temperature: Warm Skin Moisture: Dry Skin Color: Normal Course - Re-evaluation Re-evalutation: 05/09/19 13:44 nonspecific history w/o focal exam findings labs reassuring recommend outpt follow up with pcp to check thyroid function otherwise safe for dc from an ED standpoint - Vital Signs Vital signs: Temp Pulse Resp BP Pulse Ox 98.4 F 65 12 140/69 H 96 05/09/19 13:01 05/09/19 11:08 05/09/19 13:01 05/09/19 13:01 05/09/19 13:01 - Laboratory Result Diagrams: 05/09/19 11:27 05/09/19 11:27 Laboratory results interpreted by me: 05/09/19 05/09/19 05/09/19 11:27 11:27 11:27 Hgb 15.6 H Calcium 10.6 H AST 37 H Albumin 5.1 H Urine Blood SMALL H Discharge - Discharge Clinical Impression: Elevated blood pressure reading, Dehydration Fatigue Qualifiers: Fatigue type: unspecified Qualified Code(s): R53.83 - Other fatigue Condition: Stable Disposition: HOME, SELF-CARE Instructions: Dehydration ([facility]), Fatigue ([facility]) Additional Instructions: please follow up with a primary doctor for follow up of your symptoms - request that your thyroid function be tested return to the ED with worsening continue your augmentin to completion and all of your home medications as prescribed Forms: Elevated Blood Pressure Referrals: DOMINGO QUIÑONEZ PA-C [Primary Care Provider] - Follow up as needed
[2019-05-09] MEDS ORDERED: NORMAL SALINE 1000 ML 1,000 ML IV ONE (13:26)
--- NOTE | 2019-05-09 13:49 | ER Document Report ---
Doctor's Note Notes: 05/09/19 13:48 patient was offered IVF but apparently eloped prior to receiving them and discharge counseling.
== END 2019-05-09 13:53 | disposition home or self-care (01) ==
LOC: ER 10:53
DX: R53.83 Other fatigue (principal); E86.0 Dehydration; R03.0 Elevated blood-pressure reading, without diagnosis of hypertension; R53.1 Weakness; R11.0 Nausea; R50.9 Fever, unspecified; F17.200 Nicotine dependence, unspecified, uncomplicated; J44.9 Chronic obstructive pulmonary disease, unspecified; E11.9 Type 2 diabetes mellitus without complications
CPT/HCPCS: 36415; 80053; 81001; 83690; 85025; 99283